=== PATIENT | female | born 1950 | race African-American/Black ===

== ENCOUNTER 2017-04-01 00:58 | Emergency (ER) | payer MEDICARE, MEDICAID ==
[~2017-04-01] VITALS: Ht 152.4 cm; Wt 205.0 kg
[2017-04-01] MEDS ORDERED: P20 PO (02:18)
[2017-04-01] MEDS ORDERED: FURO-151 PO (02:18)
[2017-04-01] MEDS ORDERED: DIPH25CA83 PO (02:19)
[2017-04-01 06:45] LABS: BASOPHILS % 0.9 % (0.0-2.0); EOSINOPHILS % 5.3 % (0.0-5.0); HEMATOCRIT. 33.3 % (36.0-48.0); HEMOGLOBIN. 10.3 g/dL (12.0-16.0); LYMPHOCYTES % 17.1 % (20.0-50.0); MEAN CORPUSCULAR HEMOGLOBIN 23.6 pg (28.0-32.0); MEAN CORPUSCULAR VOLUME 75.9 fL (81.0-99.0); MEAN PLATELET VOLUME 7.7 fl (7.4-10.4); MONOCYTES % 7.5 % (2.0-8.0); NEUTROPHILS % 69.2 % (40.0-76.0); PLATELET 292 x1000/uL (130-400); RED BLOOD CELL COUNT 4.38 mill/uL (4.2-5.4); RED CELL DISTRIBUTION WIDTH 17.6 % (11.6-14.6)
[2017-04-01 06:53] LABS: PROTHROMBIN TIME 10.7 sec (9.4-11.6)
[2017-04-01 06:59] LABS: CARBON DIOXIDE 32 mEq/L (21-32); CHLORIDE 102 mEq/L (98-107)
[2017-04-01] MEDS ORDERED: METOCLOPRAMIDE HCL 10MG/2ML VIAL IV ONE (08:30)
[2017-04-01] MEDS ORDERED: KETOROLAC 30MG/ML VIAL IV ONE (08:30)
[2017-04-01 09:12] VITALS: BP 129/68
== END 2017-04-01 09:11 | disposition home or self-care (01) ==
LOC: ER 01:26
DX: K92.1 Melena (principal); J44.9 Chronic obstructive pulmonary disease, unspecified; I50.9 Heart failure, unspecified; R06.00 Dyspnea, unspecified
CPT/HCPCS: 36415; 71010; 80053; 83880; 85025; 85610; 86850; 86900; 86901; 93005; 99285; J1885; J2765

== ENCOUNTER 2017-11-06 20:07 | Emergency (ER) | payer MEDICARE, OTHER ==
[~2017-11-06] VITALS: Ht 149.9 cm; Wt 204.1 kg
[~2017-11-06 20:07] MED LIST: DIPH25CA83 PO; FURO-151 PO; P20 PO
[2017-11-07] MEDS ORDERED: KETOROLAC 30MG/ML VIAL IV STA (00:10)
[2017-11-07] MEDS ORDERED: SODIUM CHLORIDE 0.9% 1,000 ML IV ONE (00:10)
[2017-11-07] MEDS ORDERED: IPRATROPIUM/ALBUTEROL 0.5-3(2.5)MG/3ML NEB HHN ONE (00:15)
[2017-11-07 01:15] LABS: BASOPHILS % 0.7 % (0.0-2.0); EOSINOPHILS % 0.1 % (0.0-5.0); HEMATOCRIT. 32.9 % (36.0-48.0); HEMOGLOBIN. 10.2 g/dL (12.0-16.0); LYMPHOCYTES % 14.6 % (20.0-50.0); MEAN CORPUSCULAR HEMOGLOBIN 23.4 pg (28.0-32.0); MEAN CORPUSCULAR VOLUME 75.2 fL (81.0-99.0); MONOCYTES % 7.8 % (2.0-8.0); NEUTROPHILS % 76.8 % (40.0-76.0); PLATELET 250 x1000/uL (130-400); RED BLOOD CELL COUNT 4.38 mill/uL (4.2-5.4); RED CELL DISTRIBUTION WIDTH 16.9 % (11.6-14.6)
[2017-11-07 01:17] LABS: CHLORIDE 98 mEq/L (98-107)
[2017-11-07 01:18] LABS: INR 1.1; PROTHROMBIN TIME 11.3 sec (9.4-11.6)
[2017-11-07] MEDS ORDERED: ALBUTEROL (0.083%) 2.5MG/3ML NEB HHN STA (01:34)
[2017-11-07] MEDS ORDERED: IPRATROPIUM BROMIDE (0.02%) 0.5MG/2.5ML NEB HHN STA (01:34)
[2017-11-07] MEDS ORDERED: METHYLPREDNISOLONE SOD SUCC 125 MG/2 ML VIAL IV STA (01:34)
[2017-11-07] MEDS ORDERED: NITROGLYCERIN OINT 1GM/INCH UDPKT TD ONE (01:45)
[2017-11-07] MEDS ORDERED: ASPIRIN 81MG TABLET PO ONE (01:45)
[2017-11-07] MEDS ORDERED: FUROSEMIDE 40MG/4ML VIAL IVP ONE (01:45)
[2017-11-07] MEDS ORDERED: MAGNESIUM 2 G PREMIX 50 ML IV ONE (01:45)
[2017-11-07] MEDS ORDERED: MECLIZINE 25MG TABLET PO ONE (02:15)
[2017-11-07] MEDS ORDERED: ALBUTEROL (0.5%) 2.5MG/0.5ML NEB HHN ONE (02:40)
[2017-11-07 02:48] LABS: CHLORIDE 98 mEq/L (98-107)
[2017-11-07 02:49] LABS: INR 1.1; PROTHROMBIN TIME 11.1 sec (9.4-11.6)
[2017-11-07 02:52] LABS: ETHANOL BLOOD < 10 mg/dL
[2017-11-07 06:11] VITALS: BP 135/67
== END 2017-11-07 06:24 | disposition home or self-care (01) ==
LOC: ER 21:14
DX: I11.0 Hypertensive heart disease with heart failure (principal); I50.9 Heart failure, unspecified; R51 Headache; R42 Dizziness and giddiness; J44.9 Chronic obstructive pulmonary disease, unspecified; F17.200 Nicotine dependence, unspecified, uncomplicated; E66.9 Obesity, unspecified
CPT/HCPCS: 36415; 71045; 80053; 83605; 83690; 83880; 84484; 85025; 85610; 87040; 93005; 94640; 96365; 96375; 99285; G0482; J1885; J1940; J2930; J3475; J7030; J7611; J7620; J8597

== ENCOUNTER 2018-05-24 19:12 | Inpatient (IN) | payer MEDICARE, OTHER ==
[~2018-05-24] VITALS: Ht 144.8 cm; Wt 181.4 kg
[2018-05-24] MEDS ORDERED: MECLIZINE 25MG TABLET PO ONE (21:30)
[2018-05-24 22:07] LABS: HEMOGLOBIN. 11.2 g/dL (12.0-16.0); MEAN CORPUSCULAR HEMOGLOBIN 24.4 pg (28.0-32.0); MEAN CORPUSCULAR VOLUME 76.3 fL (81.0-99.0); MEAN PLATELET VOLUME 7.9 fl (7.4-10.4); PLATELET 357 x1000/uL (130-400); RED BLOOD CELL COUNT 4.59 mill/uL (4.2-5.4); RED CELL DISTRIBUTION WIDTH 17.4 % (11.6-14.6)
[2018-05-24 22:11] LABS: CHLORIDE 98 mEq/L (98-107)
[2018-05-24 22:19] LABS: PARTIAL THROMBOPLASTIN TIME 27.5 sec (23.4-31.0); PROTHROMBIN TIME 10.4 sec (9.1-11.1)
[2018-05-24 22:30] LABS: PLATELET ESTIMATE NORMAL
[2018-05-24] MEDS ORDERED: METOCLOPRAMIDE HCL 10MG/2ML VIAL IV ONE (22:30)
[2018-05-24] MEDS ORDERED: DIPHENHYDRAMINE 50MG/ML VIAL IV ONE (22:30)
[2018-05-24] MEDS ORDERED: SODIUM CHLORIDE 0.9% 1000ML BAG (SEPSIS BOLUS) IV ONE (23:30)
[2018-05-24] MEDS ORDERED: LEVOFLOXACIN 750MG PREMIX 150 ML IV ONE (23:30)
[2018-05-25] MEDS ORDERED: ASPIRIN 81MG TABLET PO ONE (01:15)
[2018-05-25] MEDS ORDERED: MECLIZINE 25MG TABLET PO PRN (04:45)
[2018-05-25] MEDS ORDERED: GUAIFENESIN 200MG/10ML SUGAR FREE UDC PO PRN (04:45)
[2018-05-25] MEDS ORDERED: ONDANSETRON HCL 4MG/2ML INJ IV PRN (04:45)
[2018-05-25] MEDS ORDERED: ACETAMINOPHEN 325MG TABLET PO PRN (04:45)
[2018-05-25] MEDS ORDERED: DIPHENHYDRAMINE 50MG/ML VIAL IV PRN (04:45)
[2018-05-25 08:45] VITALS: BP 130/69
[2018-05-25 09:13] LABS: CLARITY URINE CLEAR (CLEAR); COLOR URINE YELLOW (YELLOW); KETONES URINE NEGATIVE (NEGATIVE); LEUKOCYTE ESTERASE URINE 1+ (NEGATIVE); NITRITE URINE POSITIVE (NEGATIVE); OCCULT BLOOD URINE TRACE (NEGATIVE); PROTEIN URINE TRACE (NEGATIVE); SPECIFIC GRAVITY URINE 1.023 (1.005-1.030); UROBILINOGEN URINE 0.2 E.U./dL (0.2-1.0)
[2018-05-25 09:24] LABS: *AMPHETAMINES SCREEN URINE NEGATIVE (NEGATIVE); *BARBITURATES SCREEN URINE NEGATIVE (NEGATIVE); *BENZODIAZEPINES SCREEN URINE NEGATIVE (NEGATIVE); *COCAINE SCREEN URINE NEGATIVE (NEGATIVE)
[2018-05-25 09:25] LABS: CANNABINOID URINE SCREEN NEGATIVE (NEGATIVE); METHADONE URINE SCREEN NEGATIVE (NEGATIVE); OPIATES URINE SCREEN PRESUMTIVE POSITIVE (NEGATIVE)
[2018-05-25 09:26] LABS: PHENCYCLIDINE URINE SCREEN NEGATIVE (NEGATIVE)
[2018-05-25 09:30] VITALS: BP 130/69
[2018-05-25 12:00] VITALS: BP 131/50
[2018-05-25] MEDS: SODIUM CHLORIDE 0.9% INJ 3ML FLUSH IVF SCH ×2 (14:32→21:16)
[2018-05-25 16:00] VITALS: BP 128/56
[2018-05-25] MEDS ORDERED: DIPHENHYDRAMINE 50MG CAPSULE PO PRN (16:30)
[2018-05-25] MEDS: FUROSEMIDE 40MG/4ML VIAL IVP SCH (17:22)
[2018-05-25] MEDS: PREDNISONE 20MG TABLET PO SCH (17:22)
[2018-05-25 17:25] LABS: BG BASE EXCESS 6.2 mmol/L (-2.0-2.0); BG CARBOXYHEMOGLOBIN 0.3 % (0.5-1.5); BG DEOXYHEMOGLOBIN 4.8 % (0.0-5.0); BG FRACTION INSPIRED OXYGEN 21; BG HCO3 ACT 31.3 mmol/L (22.0-26.0); BG METHEMOGLOBIN 0.3 % (0.0-1.5); BG OXYGEN SATURATION 95.2 % (92.0-98.5); BG OXYHEMOGLOBIN 94.6 % (94.0-97.0); BG PCO2 48.3 mmHg (35.0-45.0); BG PO2 73.3 mmHg (75.0-100.0); BG SAMPLE SITE LEFT RADIAL; BG TOTAL HEMOGLOBIN 10.3 g/dL (12.0-18.0); BG VENT MODE ROOM AIR
[2018-05-25] MEDS ORDERED: LORAZEPAM 1MG TABLET PO PRN (17:41)
[2018-05-25] MEDS: POTASSIUM CHLORIDE 20MEQ TABLET SR PO SCH (18:18)
[2018-05-25 18:29] LABS: CHLORIDE 104 mEq/L (98-107)
[2018-05-25 20:00] VITALS: BP 133/50
[2018-05-26] VITALS: BP 132/50
[2018-05-26 04:00] VITALS: BP 129/63
[2018-05-26] MEDS: SODIUM CHLORIDE 0.9% INJ 3ML FLUSH IVF SCH ×3 (06:27→21:14)
[2018-05-26] MEDS: IPRATROPIUM/ALBUTEROL 0.5-3(2.5)MG/3ML NEB INH PRN ×3 (08:27→15:53)
[2018-05-26 08:39] VITALS: BP 110/43
[2018-05-26] MEDS: FUROSEMIDE 40MG/4ML VIAL IVP SCH ×2 (09:00→18:39)
[2018-05-26] MEDS: PREDNISONE 20MG TABLET PO SCH (09:00)
[2018-05-26] MEDS: POTASSIUM CHLORIDE 20MEQ TABLET SR PO SCH (09:01)
[2018-05-26 12:16] VITALS: BP 109/33
[2018-05-26] MEDS ORDERED: POTASSIUM CHLORIDE 20MEQ TABLET SR PO SCH (13:30)
[2018-05-26] MEDS: LEVOFLOXACIN 500MG TABLET PO SCH (13:39)
[2018-05-26 16:24] VITALS: BP 122/43
[2018-05-26] MEDS: NYSTATIN POWDER 15GM TOP SCH (18:39)
[2018-05-27] VITALS: BP 136/60
[2018-05-27 04:00] VITALS: BP 134/79
[2018-05-27] MEDS: IPRATROPIUM/ALBUTEROL 0.5-3(2.5)MG/3ML NEB INH PRN ×3 (05:07→14:15)
[2018-05-27] MEDS: FUROSEMIDE 40MG/4ML VIAL IVP SCH (06:16)
[2018-05-27] MEDS: SODIUM CHLORIDE 0.9% INJ 3ML FLUSH IVF SCH ×2 (06:16→14:00)
[2018-05-27 08:00] VITALS: BP 113/49
[2018-05-27 08:05] VITALS: BP 130/59
[2018-05-27] MEDS: PREDNISONE 20MG TABLET PO SCH (08:47)
[2018-05-27] MEDS: POTASSIUM CHLORIDE 20MEQ TABLET SR PO SCH (08:47)
[2018-05-27] MEDS: NYSTATIN POWDER 15GM TOP SCH ×2 (08:47→13:37)
[2018-05-27 10:59] LABS: CHLORIDE 104 mEq/L (98-107)
[2018-05-27 12:00] VITALS: BP 115/55
[2018-05-27] MEDS: LEVOFLOXACIN 500MG TABLET PO SCH (13:37)
[2018-05-27 16:00] VITALS: BP 127/49
[2018-05-27 17:06] LABS: BG BASE EXCESS 8.9 mmol/L (-2.0-2.0); BG CARBOXYHEMOGLOBIN 0.2 % (0.5-1.5); BG DEOXYHEMOGLOBIN 6.9 % (0.0-5.0); BG HCO3 ACT 34.7 mmol/L (22.0-26.0); BG METHEMOGLOBIN 0.3 % (0.0-1.5); BG OXYGEN SATURATION 93.1 % (92.0-98.5); BG OXYHEMOGLOBIN 92.6 % (94.0-97.0); BG PCO2 54.3 mmHg (35.0-45.0); BG PH 7.424 (7.350-7.450); BG PO2 66.1 mmHg (75.0-100.0); BG SAMPLE SITE RIGHT BRACHIAL; BG TOTAL HEMOGLOBIN 10.6 g/dL (12.0-18.0); BG VENT MODE ROOM AIR
== END 2018-05-27 18:36 | disposition home or self-care (01) | DRG 720 ==
LOC: ER 19:12 → ENRESERV 05-25 07:20 → 6WST 05-25 08:32
PROVIDERS: ADMIT Internal Medicine; ATTEND Internal Medicine
DX: A41.9 Sepsis, unspecified organism (principal); J96.00 Acute respiratory failure, unspecified whether with hypoxia or hypercapnia; I50.43 Acute on chronic combined systolic (congestive) and diastolic (congestive) heart failure; E66.01 Morbid (severe) obesity due to excess calories; I42.9 Cardiomyopathy, unspecified; Z68.45 Body mass index [BMI] 70 or greater, adult; N39.0 Urinary tract infection, site not specified; J44.9 Chronic obstructive pulmonary disease, unspecified; J45.909 Unspecified asthma, uncomplicated; K21.9 Gastro-esophageal reflux disease without esophagitis; F41.1 Generalized anxiety disorder; Z82.49 Family history of ischemic heart disease and other diseases of the circulatory system; Z83.3 Family history of diabetes mellitus; Z87.11 Personal history of peptic ulcer disease; Z90.49 Acquired absence of other specified parts of digestive tract; Z79.899 Other long term (current) drug therapy
CPT/HCPCS: 36415; 36600; 71045; 80048; 80305; 82375; 82805; 83605; 83735; 83880; 84134; 84484; 93005; 93306; 94640; 96365; 96375; 97162; 97530; 99285; A6261; J1200; J1940; J1956; J2765; J7030; J7512; J7620; J8597; A4315